=== PATIENT | male | born 1980 | race Caucasian/White ===

== ENCOUNTER 2019-03-05 09:31 | Emergency (ER) | payer MEDICAID ==
[~2019-03-05] VITALS: Ht 177.8 cm; Wt 114.0 kg
[2019-03-05] MEDS ORDERED: HYDROCODONE/ACETAMINOPHEN 10/325MG TABLET PO ONE (10:45)
[2019-03-05] MEDS ORDERED: KETOROLAC 60MG/2ML VIAL IM ONE (10:45)
[2019-03-05 12:28] VITALS: BP 126/78
== END 2019-03-05 12:29 | disposition home or self-care (01) ==
LOC: ER 09:31
DX: M25.551 Pain in right hip (principal); E11.9 Type 2 diabetes mellitus without complications
CPT/HCPCS: 73502; 96372; 99283; J1885; Z7610